=== PATIENT | female | born 1960 ===

== ENCOUNTER 2017-12-15 07:55 | Emergency (ER) | payer OTHER, SELFPAY ==
[2017-12-15 08:02] VITALS: BP 133/70; PULSE 62; RESP 18; TEMP 37; O2SAT 100; BMI 26.9
--- NOTE | 2017-12-15 08:13 | ED.FEMALEGU ---
HPI - Female Genitourinary General Chief complaint: Urogenital-Female Stated complaint: LOWER BACK AND LOWER FRONT PAIN Time Seen by Provider: 12/15/17 08:05 Source: patient and family () Mode of arrival: ambulatory Limitations: no limitations History of Present Illness HPI Narrative: This is a 57-year-old female who comes to the emergency department with complaint of left flank pain radiating down towards the anterior abdomen. Patient states it started day before yesterday. It has been progressively worse. She did try some meloxicam she had left over from a prior sciatica. She did find that helpful. She has not had any fevers. She has been nauseated but no vomiting. The pain is on the left flank and comes down and radiates towards the front. Patient has not had any diarrhea or constipation. She normally has some issues with constipation. She has not had dysuria but she does notice a change in the sensation when she urinates. She feels like there is discomfort or heaviness in the suprapubic region. She has had some urgency/frequency. No vaginal bleeding or discharge. She has not had similar symptoms in the past. She has had her gallbladder out but denies any other medical problems. She has had sciatica which is why she had the meloxicam prescription. Related Data Previous Rx's Medication Instructions Recorded acetaminophen-codeine 2 tab PO Q4-6H PRN #14 tab 12/15/17 [Tylenol-Codeine #3] meloxicam 7.5 mg PO BID #20 tab 12/15/17 ondansetron [Zofran ODT] 4 mg PO TID PRN #10 tab 12/15/17 tamsulosin [Flomax] 0.4 mg PO DAILY #7 cap 12/15/17 Allergies Allergy/AdvReac Type Severity Reaction Status Date / Time hydrocodone AdvReac Verified 12/15/17 08:30 Review of Systems Review of Systems All systems reviewed & are unremarkable except as noted in HPI and below Constitutional Denies fever(s) Gastrointestinal Gastrointestinal: Denies abdominal pain, Denies change in bowel habits, Denies diarrhea, Denies nausea and Denies vomiting Genitourinary Reports as per HPI, Denies abnormal vaginal bleeding, Reports urinary frequency, Reports dysuria, Reports pelvic pain, Reports flank pain (Left), Reports urinary urgency and Denies vaginal discharge Musculoskeletal Reports as per HPI (Left flank pain) [facility] Medical History Sciatica (Resolved) Surgical History History of cholecystectomy (Chronic) Social History marital status: Smoking Status: Never smoker Exam Initial Vital Signs Initial Vital Signs: Vital Signs Temperature 98.6 F 12/15/17 08:02 Pulse Rate 62 12/15/17 08:02 Respiratory Rate 18 12/15/17 08:02 Blood Pressure 133/70 12/15/17 08:02 Pulse Oximetry 100 12/15/17 08:02 Const General: cooperative, well developed and acute distress (Moderate) Nutritional Appearance: well nourished Orientation: alert, awake, oriented x3 and not confused Other: Patient is quite uncomfortable and prefers to stand and stand slightly bent over. Resp Effort & Inspection: normal respiratory effort, able to speak in complete sentences, no respiratory distress and no use of accessory muscles Auscultation: clear to auscultation bilaterally, no rales, no rhonchi and no wheezes Cardio Rate: regular rate Rhythm: regular rhythm Heart Sounds: no click, no gallops, no murmurs and no rubs Pulses: normal peripheral pulses GI Inspection: non-distended Palpation: soft, no hepatosplenomegaly, No firm, No guarding, No pulsatile mass, No rigid and tender (Left lower quadrant) Auscultation: normal bowel sounds General: CVA tenderness (Left) Course Orders Ordered: Discontinued Medications Acetaminophen/Codeine Phosphate (Tylenol #3) 1 tab PO NOW ONE Stop: 12/15/17 08:55 Last Admin: 12/15/17 09:10 Dose: 1 tab Sodium Chloride (Normal Saline 0.9%) 1,000 mls @ 1,000 mls/hr IV BOLUS ONE Stop: 12/15/17 09:11 Last Infusion: 12/15/17 09:15 Dose: 0 mls/hr Admin: 12/15/17 08:31 Dose: 1,000 mls/hr Ketorolac Tromethamine (Toradol) 30 mg IV NOW ONE Stop: 12/15/17 08:13 Last Admin: 12/15/17 08:31 Dose: 30 mg Morphine Sulfate (Morphine) 2 mg IV NOW ONE Stop: 12/15/17 10:35 Last Admin: 12/15/17 10:38 Dose: 2 mg Reevaluation(s) Reevaluation #1: Recheck after Toradol. Patient feels better but still uncomfortable. She does not want any IV narcotics. She would take a tylenol #3, she defers any hydrocodone or oxycodone. We discussed suspect kidney stone and plan for CT since she is also quite tender to palpation. Vital Signs - 8 hr 12/15/17 08:02 Temperature 98.6 F Pulse Rate 62 Respiratory Rate 18 Blood Pressure 133/70 Pulse Oximetry 100 MDM - Female Genitourinary Lab Data Result diagrams: 12/15/17 08:20 12/15/17 08:20 Lab Results 12/15/17 12/15/17 12/15/17 Range/Units 08:13 08:20 08:20 WBC 6.9 (4.5-11.0) X10^3/uL RBC 4.59 (4.0-5.2) X10^6/uL Hgb 13.7 (12.0-16.0) g/dL Hct 41.1 (36-46) % MCV 89.5 (80-100) fL MCH 29.9 (26-34) PG MCHC 33.4 (30-36) % RDW 13.0 (11.6-14.8) % Plt Count 270 (150-400) X10^3/uL Neut % (Auto) 58.6 (50-75) % Lymph % (Auto) 33.2 (25-40) % [place] % (Auto) 5.5 (3-14) % Eos % (Auto) 1.9 L (2-4) % Baso % (Auto) 0.8 (0-2) % Neut # (Auto) 4000 (2731-3818) /uL Sodium 145 (137-145) mmol/L Potassium 4.2 (3.4-5.1) mmol/L Chloride 107 (98-107) mmol/L Carbon Dioxide 27 (22-32) mmol/L BUN 19 H (7-17) mg/dL Creatinine 0.90 (0.52-1.04) mg/dL Estimated GFR > 60.0 (>60) mL/min BUN/Creatinine Ratio 21.1 (6-22) Glucose 106 H (70-100) mg/dL Calcium 9.7 (8.4-10.2) mg/dL Total Bilirubin 0.8 (0.2-1.3) mg/dL AST 33 (14-36) IU/L ALT 30 (9-52) IU/L Alkaline Phosphatase 59 (38-126) U/L Total Protein 7.5 (6.3-8.2) g/dL Albumin 4.7 (3.5-5.0) g/dL Globulin 2.8 (1.7-4.1) g/dL Albumin/Globulin Ratio 1.7 (1.0-2.8) Urine RBC 30-100/hpf H (0-5/HPF) Urine WBC None seen (0-5/HPF) Urine Bacteria None seen (None) Ur Culture Indicated? Cult not indicated Micro UA Comment Not Reportable Urine Dip Bedside Urine Glucose Negative Bedside Urine Bilirubin - Negative Bedside Urine Ketone - Negative Urine Specific [place] 1.030 Bedside Urine Occult Blood +++ Bedside Urine pH 6.0 Bedside Urine Protein +/- 15 Bedside Urine Urobilinogen - Negative Bedside Urine Nitrite - Negative Bedside Urine Leukocytes - Negative Esterase Imaging Data CT KUB: Radiologist's impression: [place] [address] CT Scan Report Signed Patient: JAZMYN LOZANO VMR#: [id number] : 2Acct:[id number] Age/Sex: 57 / FDate of Service: 12/15/17 Loc: ED Accession Number: [id number] Procedure: CT kidney ureter bladder (KUB) Ordering Provider: Tracy Sanchez D.O. PROCEDURE: CT KIDNEY URETER BLADDER (KUB) INDICATIONS: left flank and abdominal pain TECHNIQUE: Noncontrast 5 mm thick sections acquired from the diaphragms to the symphysis. 5 mm thick coronal and sagittal reformats were then performed. For radiation dose reduction, the following was used: automated exposure control, adjustment of mA and/or kV according to patient size. COMPARISON: None. FINDINGS: Image quality: Excellent. Lung bases: Lung bases are clear. Heart size is normal. Urinary system: There is a 3 mm stone at the left uterovesical junction. There is mild left hydronephrosis and perinephric stranding. A couple of 2 mm calcifications are present in the superior pole of the left kidney. A 1 mm calcification is noted in the inferior pole of the left kidney. There is cortical scar in the superior pole of the left kidney. No right renal stone or hydronephrosis. Both kidneys are normal in size. Bladder is contracted; no calcified bladder stones. Other solid organs: Liver is normal in size. Gallbladder is surgically absent. Pancreas is normal in contours. Spleen is normal in size. No adrenal nodules. Peritoneum and bowel: Unenhanced bowel loops demonstrate normal wall thickness and caliber. No free fluid or air. Nodes and vessels: No retroperitoneal or mesenteric adenopathy by size criteria. Aorta and inferior vena cava are normal in caliber. Abdominal wall: No ventral hernias. Pelvis: No free pelvic fluid. No inguinal hernias or adenopathy. Bones: No suspicious bony lesions. No vertebral body compression fractures. IMPRESSION: 1. There is a 3 mm operative stone at the left uterovesical junction causing mild left hydronephrosis. 2. Nephrolithiasis of the left kidney with 1-2 mm nonobstructive left renal calculi as noted. 3. Cholecystectomy. Dictated by: Maeve Muñiz M.D. on 12/15/2017 at 8:55 Approved by: Maeve Muñiz M.D. on 12/15/2017 at 9:01 [facility] Narrative Medical decision making narrative: Patient hematuria but no leuks or nitrates. Heme she is quite tender node was initially concerned for pyelonephritis we did order a CT KUB she did have any signs of infection in her urine. It does show a 3 mm stone in the ureter. Patient was improved after Toradol of still somewhat uncomfortable we did Tylenol No. 3 as she tolerates those okay but oxycodone and hydrocodone make her quite ?loopy? and she different dose. She also deferred any IV narcotic pain medication. Patient's lab work looks appropriate no elevated white count, her renal function is appropriate. Electrolytes show no major changes. We discussed at length plan for Flomax, pain control as well as antinausea medicine. Patient and her are from [place] and are planning on going to work is today so we did [place] may want to stay locally here in town or make sure that they are aware that they would be very restricted in terms of care [place]. She did later elect to take some narcotic pain medication via IV. All questions were answered and we also discussed reasons to return emergently and s/s to watch for. Discharge Plan Departure Patient Disposition: Home Clinical Impression: Kidney stone on left side Discharge Date/Time: 12/15/17 11:13 Interventions: ED Discharge Assessment Last Done: 12/15/17 11:09 Instructions: DI for Kidney Stones Activity Restrictions/Additional Instructions: Follow-up when you return home with your primary care physician for recheck. If you are having rapidly worsening symptoms, fevers greater than 100.4 F, persistent vomiting or pain that is uncontrollable return to the emergency department. Take Flomax once daily until completely gone. Take pain medication as prescribed, I recommend taking meloxicam initially and then you may take the Tylenol 3 in addition for breakthrough pain. The Zofran is 4 nausea or vomiting. You may take this prior to any pain medication if helpful. Make sure to drink plenty of fluids. Prescriptions: New acetaminophen-codeine [Tylenol-Codeine #3] 300-30 mg tablet 2 tab PO Q4-6H PRN (Reason: pain) Qty: 14 RF: 0 meloxicam 7.5 mg tablet 7.5 mg PO BID Qty: 20 RF: 0 tamsulosin [Flomax] 0.4 mg capsule 0.4 mg PO DAILY Qty: 7 RF: 0 ondansetron [Zofran ODT] 4 mg tablet,disintegrating 4 mg PO TID PRN (Reason: nausea and vomiting) Qty: 10 RF: 0
--- NOTE | 2017-12-15 08:18 | ED_ITS ---
HPI - Female Genitourinary General Chief complaint: Urogenital-Female Stated complaint: LOWER BACK AND LOWER FRONT PAIN Time Seen by Provider: 12/15/17 08:05 Source: patient and family () Mode of arrival: ambulatory Limitations: no limitations History of Present Illness HPI Narrative: This is a 57-year-old female who comes to the emergency department with complaint of left flank pain radiating down towards the anterior abdomen. Patient states it started day before yesterday. It has been progressively worse. She did try some meloxicam she had left over from a prior sciatica. She did find that helpful. She has not had any fevers. She has been nauseated but no vomiting. The pain is on the left flank and comes down and radiates towards the front. Patient has not had any diarrhea or constipation. She normally has some issues with constipation. She has not had dysuria but she does notice a change in the sensation when she urinates. She feels like there is discomfort or heaviness in the suprapubic region. She has had some urgency/frequency. No vaginal bleeding or discharge. She has not had similar symptoms in the past. She has had her gallbladder out but denies any other medical problems. She has had sciatica which is why she had the meloxicam prescription. Related Data Previous Rx's Medication Instructions Recorded acetaminophen-codeine 2 tab PO Q4-6H PRN #14 tab 12/15/17 [Tylenol-Codeine #3] meloxicam 7.5 mg PO BID #20 tab 12/15/17 ondansetron [Zofran ODT] 4 mg PO TID PRN #10 tab 12/15/17 tamsulosin [Flomax] 0.4 mg PO DAILY #7 cap 12/15/17 Allergies Allergy/AdvReac Type Severity Reaction Status Date / Time hydrocodone AdvReac Verified 12/15/17 08:30 Review of Systems Review of Systems All systems reviewed & are unremarkable except as noted in HPI and below Constitutional Denies fever(s) Gastrointestinal Gastrointestinal: Denies abdominal pain, Denies change in bowel habits, Denies diarrhea, Denies nausea and Denies vomiting Genitourinary Reports as per HPI, Denies abnormal vaginal bleeding, Reports urinary frequency , Reports dysuria, Reports pelvic pain, Reports flank pain (Left), Reports urinary urgency and Denies vaginal discharge Musculoskeletal Reports as per HPI (Left flank pain) [facility] Medical History Sciatica (Resolved) Surgical History History of cholecystectomy (Chronic) Social History marital status: Smoking Status: Never smoker Exam Initial Vital Signs Initial Vital Signs: Vital Signs Temperature 98.6 F 12/15/17 08:02 Pulse Rate 62 12/15/17 08:02 Respiratory Rate 18 12/15/17 08:02 Blood Pressure 133/70 12/15/17 08:02 Pulse Oximetry 100 12/15/17 08:02 Const General: cooperative, well developed and acute distress (Moderate) Nutritional Appearance: well nourished Orientation: alert, awake, oriented x3 and not confused Other: Patient is quite uncomfortable and prefers to stand and stand slightly bent over. Resp Effort & Inspection: normal respiratory effort, able to speak in complete sentences, no respiratory distress and no use of accessory muscles Auscultation: clear to auscultation bilaterally, no rales, no rhonchi and no wheezes Cardio Rate: regular rate Rhythm: regular rhythm Heart Sounds: no click, no gallops, no murmurs and no rubs Pulses: normal peripheral pulses GI Inspection: non-distended Palpation: soft, no hepatosplenomegaly, No firm, No guarding, No pulsatile mass , No rigid and tender (Left lower quadrant) Auscultation: normal bowel sounds General: CVA tenderness (Left) Course Orders Ordered: Discontinued Medications Acetaminophen/Codeine Phosphate (Tylenol #3) 1 tab PO NOW ONE Stop: 12/15/17 08:55 Last Admin: 12/15/17 09:10 Dose: 1 tab Sodium Chloride (Normal Saline 0.9%) 1,000 mls @ 1,000 mls/hr IV BOLUS ONE Stop: 12/15/17 09:11 Last Infusion: 12/15/17 09:15 Dose: 0 mls/hr Admin: 12/15/17 08:31 Dose: 1,000 mls/hr Ketorolac Tromethamine (Toradol) 30 mg IV NOW ONE Stop: 12/15/17 08:13 Last Admin: 12/15/17 08:31 Dose: 30 mg Morphine Sulfate (Morphine) 2 mg IV NOW ONE Stop: 12/15/17 10:35 Last Admin: 12/15/17 10:38 Dose: 2 mg Reevaluation(s) Reevaluation #1: Recheck after Toradol. Patient feels better but still uncomfortable. She does not want any IV narcotics. She would take a tylenol #3 , she defers any hydrocodone or oxycodone. We discussed suspect kidney stone and plan for CT since she is also quite tender to palpation. Vital Signs - 8 hr 12/15/17 08:02 Temperature 98.6 F Pulse Rate 62 Respiratory Rate 18 Blood Pressure 133/70 Pulse Oximetry 100 MDM - Female Genitourinary Lab Data Result diagrams: 12/15/17 08:20 12/15/17 08:20 Lab Results 12/15/17 12/15/17 12/15/17 Range/Units 08:13 08:20 08:20 WBC 6.9 (4.5-11.0) X10^3/uL RBC 4.59 (4.0-5.2) X10^6/uL Hgb 13.7 (12.0-16.0) g/dL Hct 41.1 (36-46) % MCV 89.5 (80-100) fL MCH 29.9 (26-34) PG MCHC 33.4 (30-36) % RDW 13.0 (11.6-14.8) % Plt Count 270 (150-400) X10^3/uL Neut % (Auto) 58.6 (50-75) % Lymph % (Auto) 33.2 (25-40) % [place] % (Auto) 5.5 (3-14) % Eos % (Auto) 1.9 L (2-4) % Baso % (Auto) 0.8 (0-2) % Neut # (Auto) 4000 (6233-8311) /uL Sodium 145 (137-145) mmol/L Potassium 4.2 (3.4-5.1) mmol/L Chloride 107 (98-107) mmol/L Carbon Dioxide 27 (22-32) mmol/L BUN 19 H (7-17) mg/dL Creatinine 0.90 (0.52-1.04) mg/dL Estimated GFR > 60.0 (>60) mL/min BUN/Creatinine Ratio 21.1 (6-22) Glucose 106 H (70-100) mg/dL Calcium 9.7 (8.4-10.2) mg/dL Total Bilirubin 0.8 (0.2-1.3) mg/dL AST 33 (14-36) IU/L ALT 30 (9-52) IU/L Alkaline Phosphatase 59 (38-126) U/L Total Protein 7.5 (6.3-8.2) g/dL Albumin 4.7 (3.5-5.0) g/dL Globulin 2.8 (1.7-4.1) g/dL Albumin/Globulin Ratio 1.7 (1.0-2.8) Urine RBC 30-100/hpf H (0-5/HPF) Urine WBC None seen (0-5/HPF) Urine Bacteria None seen (None) Ur Culture Indicated? Cult not indicated Micro UA Comment Not Reportable Urine Dip Bedside Urine Glucose Negative Bedside Urine Bilirubin - Negative Bedside Urine Ketone - Negative Urine Specific [place] 1.030 Bedside Urine Occult Blood +++ Bedside Urine pH 6.0 Bedside Urine Protein +/- 15 Bedside Urine Urobilinogen - Negative Bedside Urine Nitrite - Negative Bedside Urine Leukocytes - Negative Esterase Imaging Data CT KUB: Radiologist's impression: [place] [address] CT Scan Report Signed Patient: JAZMYN LOZANO VMR#: [id number] : 2Acct:[id number] Age/Sex: 57 / FDate of Service: 12/15/17 Loc: ED Accession Number: [id number] Procedure: CT kidney ureter bladder (KUB) Ordering Provider: Tracy Sanchez D.O. PROCEDURE: CT KIDNEY URETER BLADDER (KUB) INDICATIONS: left flank and abdominal pain TECHNIQUE: Noncontrast 5 mm thick sections acquired from the diaphragms to the symphysis. 5 mm thick coronal and sagittal reformats were then performed. For radiation dose reduction, the following was used: automated exposure control, adjustment of mA and/or kV according to patient size. COMPARISON: None. FINDINGS: Image quality: Excellent. Lung bases: Lung bases are clear. Heart size is normal. Urinary system: There is a 3 mm stone at the left uterovesical junction. There is mild left hydronephrosis and perinephric stranding. A couple of 2 mm calcifications are present in the superior pole of the left kidney. A 1 mm calcification is noted in the inferior pole of the left kidney. There is cortical scar in the superior pole of the left kidney. No right renal stone or hydronephrosis. Both kidneys are normal in size. Bladder is contracted; no calcified bladder stones. Other solid organs: Liver is normal in size. Gallbladder is surgically absent. Pancreas is normal in contours. Spleen is normal in size. No adrenal nodules. Peritoneum and bowel: Unenhanced bowel loops demonstrate normal wall thickness and caliber. No free fluid or air. Nodes and vessels: No retroperitoneal or mesenteric adenopathy by size criteria. Aorta and inferior vena cava are normal in caliber. Abdominal wall: No ventral hernias. Pelvis: No free pelvic fluid. No inguinal hernias or adenopathy. Bones: No suspicious bony lesions. No vertebral body compression fractures. IMPRESSION: 1. There is a 3 mm operative stone at the left uterovesical junction causing mild left hydronephrosis. 2. Nephrolithiasis of the left kidney with 1-2 mm nonobstructive left renal calculi as noted. 3. Cholecystectomy. Dictated by: Maeve Muñiz M.D. on 12/15/2017 at 8:55 Approved by: Maeve Muñiz M.D. on 12/15/2017 at 9:01 [facility] Narrative Medical decision making narrative: Patient hematuria but no leuks or nitrates. Heme she is quite tender node was initially concerned for pyelonephritis we did order a CT KUB she did have any signs of infection in her urine. It does show a 3 mm stone in the ureter. Patient was improved after Toradol of still somewhat uncomfortable we did Tylenol No. 3 as she tolerates those okay but oxycodone and hydrocodone make her quite ?loopy? and she different dose. She also deferred any IV narcotic pain medication. Patient's lab work looks appropriate no elevated white count, her renal function is appropriate. Electrolytes show no major changes. We discussed at length plan for Flomax, pain control as well as antinausea medicine. Patient and her are from [place] and are planning on going to work is today so we did discuss that [place] and they may want to stay locally here in town or make sure that they are aware that they would be very restricted in terms of care [place]. She did later elect to take some narcotic pain medication via IV. All questions were answered and we also discussed reasons to return emergently and s /s to watch for. Discharge Plan Departure Patient Disposition: Home Clinical Impression: Kidney stone on left side Discharge Date/Time: 12/15/17 11:13 Interventions: ED Discharge Assessment Last Done: 12/15/17 11:09 Instructions: DI for Kidney Stones Activity Restrictions/Additional Instructions: Follow-up when you return home with your primary care physician for recheck. If you are having rapidly worsening symptoms, fevers greater than 100.4 F, persistent vomiting or pain that is uncontrollable return to the emergency department. Take Flomax once daily until completely gone. Take pain medication as prescribed, I recommend taking meloxicam initially and then you may take the Tylenol 3 in addition for breakthrough pain. The Zofran is 4 nausea or vomiting. You may take this prior to any pain medication if helpful. Make sure to drink plenty of fluids. Prescriptions: New acetaminophen-codeine [Tylenol-Codeine #3] 300-30 mg tablet 2 tab PO Q4-6H PRN (Reason: pain) Qty: 14 RF: 0 meloxicam 7.5 mg tablet 7.5 mg PO BID Qty: 20 RF: 0 tamsulosin [Flomax] 0.4 mg capsule 0.4 mg PO DAILY Qty: 7 RF: 0 ondansetron [Zofran ODT] 4 mg tablet,disintegrating 4 mg PO TID PRN (Reason: nausea and vomiting) Qty: 10 RF: 0
[2017-12-15 08:23] LABS: Bacteria Urine None Seen; WBC Urine None Seen (0-5/HPF)
[2017-12-15 08:31] LABS: Culture Indicated Urine Cult Not Indicated; RBC Urine 30-100/HPF (0-5/HPF)
[2017-12-15] MEDS: KETOROLAC 30 MG/ML VIAL IV (08:31)
[2017-12-15] MEDS: SODIUM CHLORIDE 0.9% 1,000 ML 1000 ML IV (08:31)
--- NOTE | 2017-12-15 08:35 | DI.CT.S_ITS ---
PROCEDURE: CT KIDNEY URETER BLADDER (KUB) INDICATIONS: left flank and abdominal pain TECHNIQUE: Noncontrast 5 mm thick sections acquired from the diaphragms to the symphysis. 5 mm thick coronal and sagittal reformats were then performed. For radiation dose reduction, the following was used: automated exposure control, adjustment of mA and/or kV according to patient size. COMPARISON: None. FINDINGS: Image quality: Excellent. Lung bases: Lung bases are clear. Heart size is normal. Urinary system: There is a 3 mm stone at the left uterovesical junction. There is mild left hydronephrosis and perinephric stranding. A couple of 2 mm calcifications are present in the superior pole of the left kidney. A 1 mm calcification is noted in the inferior pole of the left kidney. There is cortical scar in the superior pole of the left kidney. No right renal stone or hydronephrosis. Both kidneys are normal in size. Bladder is contracted; no calcified bladder stones. Other solid organs: Liver is normal in size. Gallbladder is surgically absent. Pancreas is normal in contours. Spleen is normal in size. No adrenal nodules. Peritoneum and bowel: Unenhanced bowel loops demonstrate normal wall thickness and caliber. No free fluid or air. Nodes and vessels: No retroperitoneal or mesenteric adenopathy by size criteria. Aorta and inferior vena cava are normal in caliber. Abdominal wall: No ventral hernias. Pelvis: No free pelvic fluid. No inguinal hernias or adenopathy. Bones: No suspicious bony lesions. No vertebral body compression fractures. IMPRESSION: 1. There is a 3 mm operative stone at the left uterovesical junction causing mild left hydronephrosis. 2. Nephrolithiasis of the left kidney with 1-2 mm nonobstructive left renal calculi as noted. 3. Cholecystectomy. Dictated by: Maeve Muñiz M.D. on 12/15/2017 at 8:55 Approved by: Maeve Muñiz M.D. on 12/15/2017 at 9:01
[2017-12-15 08:37] LABS: Add Manual Diff / Slide Review NO; Basophils Percent Auto 0.8 % (0-2); Eosinophils Percent Auto 1.9 % (2-4); Hematocrit 41.1 % (36-46); Hemoglobin 13.7 g/dL (12.0-16.0); Lymphocytes Percent Auto 33.2 % (25-40); Mean Corpuscular HGB Conc 33.4 % (30-36); Mean Corpuscular Hemoglobin 29.9 PG (26-34); Mean Corpuscular Volume 89.5 fL (80-100); Monocytes Percent Auto 5.5 % (3-14); Neutrophils Absolute Auto 4000 /uL (3000-5900); Neutrophils Percent Auto 58.6 % (50-75); Platelet Count 270 X10^3/uL (150-400); Red Blood Cell Count 4.59 X10^6/uL (4.0-5.2); White Blood Cell Count 6.9 X10^3/uL (4.5-11.0)
[2017-12-15] MEDS: CODEINE/ACETAMINOPHEN 30/300 TABLET 1 TAB PO (09:10)
[2017-12-15 09:11] LABS: Alanine Aminotransferase 30 IU/L (9-52); Albumin 4.7 g/dL (3.5-5.0); Albumin Globulin Ratio 1.7 (1.0-2.8); Alkaline Phosphatase 59 U/L (38-126); Aspartate Aminotransferase 33 IU/L (14-36); BUN Creatinine Ratio 21.1 (6-22); Bilirubin Total 0.8 mg/dL (0.2-1.3); Blood Urea Nitrogen 19 mg/dL (7-17); Calcium 9.7 mg/dL (8.4-10.2); Carbon Dioxide 27 mmol/L (22-32); Chloride 107 mmol/L (98-107); Estimated Glomerular Filt Rate > 60.0 mL/min (>60); Globulin 2.8 g/dL (1.7-4.1); Glucose 106 mg/dL (70-100); HEMOLYSIS 29 (0-50); Potassium 4.2 mmol/L (3.4-5.1); Sodium 145 mmol/L (137-145); Total Protein 7.5 g/dL (6.3-8.2)
--- NOTE | 2017-12-15 09:22 | PC.NURSE ---
to dispo pt
[2017-12-15] MEDS: MORPHINE 2 MG/ML INJ IV (10:38)
[2017-12-15 10:56] VITALS: BP 103/55; PULSE 59; RESP 12; O2SAT 100
[2017-12-15 11:03] VITALS: BP 116/62; PULSE 67; RESP 16; TEMP 36.8; O2SAT 100
== END 2017-12-15 11:13 | disposition home or self-care (01) ==
PROVIDERS: Emergency Provider Emergency Medicine
DX: N20.0 Calculus of kidney (principal)
CPT/HCPCS: 36591; 74176; 80053; 81003; 81015; 85025; 96361; 96374; 96375; 99283; 99284; J1885; J2270